=== PATIENT | male | born 2000 | race Caucasian/White ===

== ENCOUNTER 2025-02-15 13:59 | Emergency (ER) | payer OTHER ==
[~2025-02-15] VITALS: Ht 190.5 cm; Wt 108.9 kg
[~2025-02-15 13:59] MED LIST: CLARITIN10 MG PO; MULTI VITAMIN1 EACH PO
[2025-02-15 15:13] VITALS: BP 126/88
== END 2025-02-15 15:15 | disposition home or self-care (01) ==
LOC: ED 13:59
DX: L72.8 Other follicular cysts of the skin and subcutaneous tissue (principal); Z91.018 Allergy to other foods
CPT/HCPCS: 10060; 99282-25